=== PATIENT | female | born 1955 | race Caucasian/White ===

== ENCOUNTER 2021-07-24 10:01 | Outpatient (RCR) | payer BC | END 2021-07-29 | disposition home or self-care (01) | LOC: WSST | DX: R49.0 Dysphonia (principal) ==

== ENCOUNTER 2021-08-21 15:15 | Outpatient (RCR) | payer BC | END 2021-08-26 | disposition home or self-care (01) | LOC: WSST | DX: R49.0 Dysphonia (principal) ==

== ENCOUNTER 2021-08-28 15:05 | Outpatient (RCR) | payer BC | END 2021-09-26 | disposition home or self-care (01) | LOC: WSST | DX: R49.0 Dysphonia (principal) ==